=== PATIENT | female | born 1955 | race Caucasian/White ===

== ENCOUNTER 2019-01-21 13:25 | Emergency (ER) | payer OTHER ==
--- NOTE | 2019-01-21 13:47 | EDM.PDOC ---
ED HPI GENERAL MEDICAL PROBLEM - General Chief Complaint: Head Injury Stated Complaint: fell, scraped forehead Time Seen by Provider: 01/21/19 13:34 Source of Information: Reports: Patient, RN History Limitations: Reports: No Limitations - History of Present Illness INITIAL COMMENTS - FREE TEXT/NARRATIVE: 63 yr female presents with fall on asphalt, was exploring and fell foreward, hit head and scraped forehead. Frontal Head Pain Score (Numeric/FACES): 2 - Related Data Allergies Allergy/AdvReac Type Severity Reaction Status Date / Time No Known Allergies Allergy Verified 01/21/19 14:48 Home Meds: Home Meds Citalopram Hydrobromide [Citalopram HBr] 20 mg PO DAILY 08/23/13 [History] Levothyroxine 75 mcg PO ACBREAKFAST 08/23/13 [History] Simvastatin 20 mg PO QPM 08/23/13 [History] metFORMIN HCl [Metformin HCl] 1,000 mg PO BID 08/23/13 [History] Triamcinolone Acetonide [Kenalog 0.1% Crm] 1 applic TOP BID PRN 01/03/19 [ History] Cephalexin [Keflex] 250 mg PO QID #7 capsule 01/21/19 [Rx] Past Medical History Other Musculoskeletal History: joint pain ED ROS GENERAL - Review of Systems Review Of Systems: See Below Constitutional: Reports: No Symptoms HEENT: Reports: Other (head pain and abrasion) Respiratory: Reports: No Symptoms Cardiovascular: Reports: No Symptoms Skin: Reports: Other (abrasion to rigth forehead, right eyelid, nose and palms of hands.) Neurological: Reports: Confusion (on admit, none at end of visit), Headache ED EXAM, HEAD INJURY - Physical Exam Exam: See Below Exam Limited By: No Limitations General Appearance: Alert, Mild Distress Head: Facial Abrasions, Facial Tenderness Ears: Hearing Grossly Normal Nose: Other (nasal abrasion) Throat/Mouth: Normal Lips, Normal Voice, No Airway Compromise Neck: Non-Tender, Full Range of Motion Respiratory: No Respiratory Distress Extremities: Normal Inspection, Normal Range of Motion, Non-Tender Neurologic: Alert, Normal Mood/Affect, Oriented x 3 Skin: Normal Color, Warm/Dry, Other (superficial abrasions to forehead, right eyelid, nose and hands.) - Scott Coma Score Best Eye Response (Scott): (4) Open Spontaneously Best Verbal Response (Pep): (5) Oriented Best Motor Response (Pep): (6) Obeys Commands Course - Vital Signs Last Recorded V/S: Last Vital Signs Temp 97.1 F 01/21/19 13:30 Pulse 114 H 01/21/19 13:33 Resp 18 01/21/19 13:33 BP 155/76 H 01/21/19 13:33 Pulse Ox 98 01/21/19 13:33 - Re-Assessments/Exams Free Text/Narrative Re-Assessment/Exam: 01/21/19 16:[address] of head completed. No acute findings. Departure - Departure Time of Disposition: 14:35 Disposition: Home, Self-Care 01 Condition: Good Clinical Impression: Abrasions of multiple sites, Head injury due to trauma - Discharge Information *PRESCRIPTION DRUG MONITORING PROGRAM REVIEWED*: Not Applicable *COPY OF PRESCRIPTION DRUG MONITORING REPORT IN PATIENT ABDOULAYE: Not Applicable Prescriptions: Cephalexin [Keflex] 250 mg PO QID #7 capsule Instructions: Wound Care, Adult Referrals: PCP,None [Primary Care Provider] - Forms: ED Department Discharge Additional Instructions: Discharge home. Follow up in the clinic next week with Odalys Stein NP. Rest today. Keep dressing on forehead until tomorrow. Triple antibiotic ointment 2 times a day for 1 week. Keflex 4 times a day for 7 days. Call or return to the ER if you have any questions or concerns. - Assessment/Plan Plan: CT of head completed and no acute findings. Rest and take it easy tonight, but up as tolerated. Keep abrasions clean, apply antibiotic oint sparingly to areas bid and start Keflex qid. RTC next week for follow-up or sooner if headache, dizziness or increase in pain.
--- NOTE | 2019-01-21 14:30 | CT ---
DATE OF SERVICE: 01/21/19 CLINICAL DATA: Fell, hit forehead, swelling to forehead, abrasion. UNENHANCED BRAIN CT: Multislice axial acquisition was performed. No priors. No masses or mass effect. No intracranial hemorrhage. No evidence of acute or subacute infarct. There is soft tissue swelling of the scalp in the left frontal region. No underlying fractures. IMPRESSION: No acute intracranial abnormalities. [id number] [facility]
[2019-01-21 14:49] VITALS: BP 155/76; PULSE 114
== END 2019-01-21 14:35 | disposition home or self-care (01) ==
LOC: LB.ED 13:25
DX: S00.81XA Abrasion of other part of head, initial encounter (principal); S00.31XA Abrasion of nose, initial encounter; S00.211A Abrasion of right eyelid and periocular area, initial encounter; S60.511A Abrasion of right hand, initial encounter; S60.512A Abrasion of left hand, initial encounter; Z79.84 Long term (current) use of oral hypoglycemic drugs; Z79.899 Other long term (current) drug therapy; W18.30XA Fall on same level, unspecified, initial encounter; W22.8XXA Striking against or struck by other objects, initial encounter
CPT/HCPCS: 70450; 99283; 99284-25

== ENCOUNTER 2022-09-16 12:27 | Emergency (ER) | payer MEDICARE, OTHER ==
[2022-09-16 13:26] LABS: HEMOGLOBIN A1C 8.1 % (< 5.7)
[2022-09-16 15:08] VITALS: BP 151/84; PULSE 81
== END 2022-09-16 14:10 | disposition home or self-care (01) ==
LOC: LB.ED 12:27
DX: E11.65 Type 2 diabetes mellitus with hyperglycemia (principal); Z79.84 Long term (current) use of oral hypoglycemic drugs
CPT/HCPCS: 36415; 80048; 82947; 83036; 84443; 99284

== ENCOUNTER 2024-09-19 07:37 | Day surgery (SDC) | payer MEDICARE, OTHER ==
[~2024-09-19 07:37] MED LIST: Metoclopramide 10 MG/2 ML SDV IV PRN
[2024-09-19] MEDS: Sodium Chloride 0.9% 1,000 ML IV SCH (08:14)
[2024-09-19] MEDS ORDERED: Propofol 500 MG/50 ML SDV ONE (09:20)
[2024-09-19 09:41] VITALS: BP 136/41; PULSE 72
== END 2024-09-19 10:30 | disposition home or self-care (01) ==
LOC: LB.SDS 07:37
PROVIDERS: ATTEND Surgery
DX: Z12.11 Encounter for screening for malignant neoplasm of colon (principal); K57.30 Diverticulosis of large intestine without perforation or abscess without bleeding; I10 Essential (primary) hypertension; K21.9 Gastro-esophageal reflux disease without esophagitis; I25.10 Atherosclerotic heart disease of native coronary artery without angina pectoris; E11.9 Type 2 diabetes mellitus without complications; E03.9 Hypothyroidism, unspecified; Z79.890 Hormone replacement therapy; Z79.84 Long term (current) use of oral hypoglycemic drugs; Z79.899 Other long term (current) drug therapy
CPT/HCPCS: 82947; J2704; J7030